=== PATIENT | female | born 1940 | race Caucasian/White ===

== ENCOUNTER 2022-07-11 11:08 | Day surgery (SDC) | payer MEDICARE ==
[2022-07-09 12:42] LABS: BASOPHILS # (AUTO) 0.1 X10'3 (0-0.2); BASOPHILS % (AUTO) 0.8 % (0-1); EOSINOPHILS # (AUTO) 0.2 X10'3 (0-0.9); EOSINOPHILS % (AUTO) 2.1 % (0-6); HEMATOCRIT 42.5 % (35.0-45.0); HEMOGLOBIN 14.1 g/dl (12.0-16.0); LYMPHOCYTES # (AUTO) 2.4 X10'3 (1.1-4.8); MEAN CORPUSCULAR HEMOGLOBIN 31.6 PG (27.0-31.0); MEAN CORPUSCULAR HGB CONC 33.1 g/dL (33.0-36.5); MEAN CORPUSCULAR VOLUME 95.6 FL (78-98); MEAN PLATELET VOLUME 9.5 FL (7.4-10.4); MONOCYTES # (AUTO) 0.5 X10'3 (0-0.9); NEUTROPHILS # (AUTO) 4.5 X10'3 (1.8-7.7); NEUTROPHILS % (AUTO) 59.1 % (42-75); PLATELET COUNT 221 X10'3 (140-440); RED BLOOD COUNT 4.45 X10'6 (4.20-5.60); RED CELL DISTRIBUTION WIDTH 14.7 % (11.5-14.5); WHITE BLOOD COUNT 7.6 X10'3 (4.5-11.0)
[2022-07-09 13:04] LABS: APTT 26 SECONDS (22-32)
[2022-07-09 13:38] LABS: ALANINE AMINOTRANSFERASE 25 U/L (12-78); ALBUMIN/GLOBULIN RATIO 1.1 (1.1-1.5); ALKALINE PHOSPHATASE 91 IU/L (46-116); ASPARTATE AMINO TRANSFERASE 26 U/L (10-37); BILIRUBIN,TOTAL 0.5 MG/DL (0.1-1.0); BLOOD UREA NITROGEN 17 MG/DL (7-18); BUN/CREATININE RATIO 12.6 (6.6-38.0); CALCIUM 8.9 MG/DL (8.5-10.1); CHLORIDE 105 MMOL/L (99-107); CREATININE 1.35 MG/DL (0.40-0.90); GLUCOSE 103 MG/DL (70-104); TOTAL CARBON DIOXIDE 27.5 MMOL/L (24-32); TOTAL PROTEIN 7.5 G/DL (6.4-8.2); eGFR 38 ML/MIN
[2022-07-09 14:08] LABS: ANION GAP 9 (8-16); POTASSIUM 3.7 MMOL/L (3.5-5.1); SODIUM 141 MMOL/L (135-145)
[2022-07-11] VITALS (14 sets, daily range): BP systolic 86–179; BP diastolic 43–95
[~2022-07-11] VITALS: Ht 167.6 cm; Wt 90.8 kg
[2022-07-11] MEDS ORDERED: diphenhydrAMINE 25mg capsule PO PRN (11:30)
[2022-07-11] MEDS ORDERED: LORazepam 0.5 MG tablet PO PRN (11:30)
[2022-07-11] MEDS ORDERED: normal saline 1,000 ML IV SCH (11:30)
[2022-07-11] MEDS ORDERED: nitroGLYCERIN 0.4mg SUBLingual tab SL PRN (11:30)
[2022-07-11] MEDS ORDERED: GABA-530 PO (11:35)
[2022-07-11] MEDS ORDERED: HYDR-4069 PO (11:35)
[2022-07-11] MEDS ORDERED: POTA10CA45 PO (11:35)
[2022-07-11] MEDS ORDERED: LISI40TA13 PO (11:35)
[2022-07-11] MEDS ORDERED: FURO20TA4 PO (11:35)
[2022-07-11] MEDS ORDERED: METO-395 PO (11:35)
[2022-07-11] MEDS ORDERED: DICL20GE (11:35)
[2022-07-11] MEDS ORDERED: ALLO100T PO (11:37)
[2022-07-11] MEDS ORDERED: LIDOcaine 1% 30ml preserv. free vial ONE (12:00)
[2022-07-11] MEDS ORDERED: fentaNYL/PF 50MCG/1 ML 2ML syringe ONE (12:00)
[2022-07-11] MEDS ORDERED: iohexol 350 MG/ML 50ML vial IV ONE (12:00)
[2022-07-11] MEDS ORDERED: iohexol 350MG/ML 100ml bottle IV ONE (12:00)
[2022-07-11] MEDS ORDERED: midazolam 1 mg/ML 2ml injection ONE (12:00)
[2022-07-11] MEDS ORDERED: hydrALAZINE 20mg/ml inj. IV ONE (12:52)
[2022-07-11] MEDS ORDERED: nitroGLYCERIN-Tridil 50MG/D5W 250 ML IV ONE (13:04)
[2022-07-11] MEDS ORDERED: HYDROcodone/acetaminophen 5mg/325mg tablet PO PRN (14:25)
[2022-07-11] MEDS ORDERED: HYDROcodone/acetaminophen 10/325mg tab PO PRN (14:25)
[2022-07-11] MEDS ORDERED: ondansetron/PF 4mg/2ml inj IV PRN (14:25)
[2022-07-11] MEDS ORDERED: proCHLORperazine 10 MG/2 ml inj IV PRN (14:25)
[2022-07-11] MEDS ORDERED: OXAZEpam 15mg capsule PO PRN (14:25)
[2022-07-12] MEDS ORDERED: pneumococcal 23-VAL P-sac vacc 25 mcg/0.5ml vial IMVAC ONE (12:30)
== END 2022-07-11 17:55 | disposition home or self-care (01) ==
LOC: SSTAY O 11:08
PROVIDERS: ATTEND Internal Medicine Cardiovascular Disease
DX: R94.39 Abnormal result of other cardiovascular function study (principal); R06.09 Other forms of dyspnea; I25.119 Atherosclerotic heart disease of native coronary artery with unspecified angina pectoris; I10 Essential (primary) hypertension; M10.9 Gout, unspecified; E78.5 Hyperlipidemia, unspecified; Z86.16 Personal history of COVID-19; Z90.710 Acquired absence of both cervix and uterus; Z90.49 Acquired absence of other specified parts of digestive tract; Z98.890 Other specified postprocedural states; Z87.891 Personal history of nicotine dependence; Z79.899 Other long term (current) drug therapy; Z79.01 Long term (current) use of anticoagulants
CPT/HCPCS: 36415; 71046; 80053; 85025; 85610; 85730; 93005; 93458; 99152; C1760; C1769; J0360; J1644; J2250; J3010; J3490; J7030; Q0163; Q9967; 99153